=== PATIENT | female | born 1995 | race Caucasian/White ===

== ENCOUNTER 2023-04-05 03:44 | Emergency (ER) | payer MEDICAID ==
[~2023-04-05] VITALS: Ht 170.1 cm; Wt 59.0 kg
[~2023-04-05 03:44] MED LIST: ATARAX,VISTARIL50 MG PO; AUGMENTIN 500 M1 TAB PO; CARBIDOPA/LEVOD1 TA1 PO; CELEXA40 MG PO; FLEXERIL5 MG PO; KLONOPIN0.5 MG PO; LAMICTAL25 MG PO; LOMOTIL 0.025 M1 TA1 PO; MEDROL DOSEPAK4 MG PO; METHOCARBAMOL750 M1 PO; MOTRIN800 MG PO; TRAZODO50 MG PO; VISTARIL25 M1 PO; ZOFRAN 4 MG ED2 TAB PO; ZOFRAN4 MG PO
[2023-04-05] MEDS ORDERED: AMOX-CLAV 875-1 EACH PO (04:12)
== END 2023-04-05 04:40 | disposition home or self-care (01) ==
LOC: ED 03:44
DX: K08.89 Other specified disorders of teeth and supporting structures (principal); F41.9 Anxiety disorder, unspecified; F32.A Depression, unspecified; F14.90 Cocaine use, unspecified, uncomplicated